=== PATIENT | female | born 1950 | race Caucasian/White ===

== ENCOUNTER 2024-07-08 05:07 | Emergency (ER) | payer MEDICARE, OTHER ==
[2024-07-08 06:12] LABS: ALT (SGPT) 20 U/L (8-55); AST (SGOT) 19 U/L (5-34); Albumin 2.8 g/dL (3.4-4.8); Alkaline Phosphatase 106 U/L (40-110); Anion Gap 16 mmol/L (10-20); BUN (Urea Nitrogen) 16 mg/dL (9.8-20.1); Bilirubin, Total 0.4 mg/dL (0.2-1.2); Calc. Creatinine Clearance 0 mL/min (70-130); Calcium 9.2 mg/dL (7.8-10.44); Carbon Dioxide 20 mmol/L (23-31); Chloride 103 mmol/L (98-107); Estimated GFR 49; Globulin 4.1 g/dL (2.4-3.5); Glucose 129 mg/dL (83-110); Potassium 4.5 mmol/L (3.5-5.1); Protein, Total 6.9 g/dL (5.8-8.1); Sodium 134 mmol/L (136-145)
[2024-07-08 06:15] LABS: Hematocrit 37.9 % (36.0-47.0); Hemoglobin 11.4 g/dL (12.0-16.0); Mean Corpuscular Hemoglobin 26.3 pg (27.0-31.0); Mean Corpuscular Volume 87.5 fl (78.0-98.0); Mean Platelet Volume 7.2 fL (7.4-10.4); Platelet Adequacy Comment Appears Adequate; Platelet Count 387 10x3/uL (130-400); RBC Distribution Width 13.5 % (11.5-14.5); Red Blood Cell (RBC) Count 4.33 mill/uL (4.20-5.40)
[2024-07-08 06:16] LABS: Troponin I 0.026 ng/mL (< 0.028)
[2024-07-08 06:20] LABS: Band 7 % (5-11); Eosinophils 1 % (0-10); Lymphocytes 15 % (21-51); MDiff Complete? YES; Neutrophil 63 % (42-75)
[2024-07-08 06:21] LABS: Monocytes 13 % (0-10)
[2024-07-08] MEDS ORDERED: cloNIDine 0.1 MG TAB ONE (06:33)
[2024-07-08] MEDS ORDERED: Mag-Al 1200 mg/1200 mg/30 ML UDCUP ONE (06:33)
[2024-07-08] MEDS ORDERED: Lidocaine Viscous Sol 2% 15 ml UD Cup ONE (06:33)
[2024-07-08] MEDS ORDERED: Aspirin Chewable 81 MG TAB ONE (09:31)
[2024-07-08] MEDS ORDERED: Nitroglycerin 2% Ointment 1 INCH/1 GM Packet ONE (09:31)
[2024-07-08 11:22] LABS: Troponin I 0.064 ng/mL (< 0.028)
== END 2024-07-08 13:19 | disposition short-term general hospital (02) ==
LOC: MADERS 05:07
DX: I16.1 Hypertensive emergency (principal); R79.89 Other specified abnormal findings of blood chemistry
CPT/HCPCS: 36415; 71046; 80053; 83880; 84484; 85025; 93005